=== PATIENT | male | born 1980 | race Caucasian/White ===

== ENCOUNTER 2017-11-03 16:47 | Emergency (ER) | payer SELFPAY ==
[~2017-11-03] VITALS: Ht 172.7 cm; Wt 59.1 kg
[2017-11-03 17:04] VITALS: BP 136/78; TEMP 98.6
[2017-11-03] MEDS ORDERED: CEPHALEXIN500 M1 PO (18:03)
[2017-11-03 18:28] VITALS: PULSE 75
== END 2017-11-03 18:31 | disposition home or self-care (01) ==
LOC: COL.ER 16:47
DX: S61.212A Laceration without foreign body of right middle finger without damage to nail, initial encounter (principal); F17.210 Nicotine dependence, cigarettes, uncomplicated; Z88.5 Allergy status to narcotic agent; Z23 Encounter for immunization; W26.0XXA Contact with knife, initial encounter; Y92.009 Unspecified place in unspecified non-institutional (private) residence as the place of occurrence of the external cause